=== PATIENT | female | born 1990 | race Two or more races ===

== ENCOUNTER 2018-04-16 04:39 | Inpatient (IN) | payer OTHER ==
[~2018-04-16] VITALS: Ht 170.2 cm; Wt 3.2 kg
[2018-04-16] MEDS ORDERED: PRENATAL 19 TA1 EAC1 (08:23)
[2018-04-16] MEDS ORDERED: VITAMIN C1000 M2 PO (08:24)
== END 2018-04-18 14:30 | DRG 766 ==
LOC: LDR 04:39 → O/R 10:00 → OB/GYN 16:31
PROVIDERS: Specialist
PROC: 4A1HXCZ Monitoring of Products of Conception, Cardiac Rate, External Approach (ICD-10-PCS; 2018-04-16)
PROC: 10D00Z1 Extraction of Products of Conception, Low, Open Approach (ICD-10-PCS; principal; 2018-04-16 09:45)
DX: O64.1XX0 Obstructed labor due to breech presentation, not applicable or unspecified (principal); O34.03 Maternal care for unspecified congenital malformation of uterus, third trimester; Q51.3 Bicornate uterus; O69.81X0 Labor and delivery complicated by cord around neck, without compression, not applicable or unspecified; Z3A.38 38 weeks gestation of pregnancy; Z37.0 Single live birth